=== PATIENT | female | born 1990 | race Caucasian/White ===

== ENCOUNTER → 2019-10-29 | Outpatient (CLI) | payer SELFPAY ==
--- NOTE | 2019-10-29 14:50 | RADIOLOGY REPORT (SQ) ---
EXAM DESCRIPTION: U/S [id number] TRNABD 1GES W/ODOP IMAGES COMPLETED DATE/TIME: 10/29/2019 2:21 pm REASON FOR STUDY: (Z34.81)ENCOUNTER FOR SUPRVSN OF NORMAL , FIRST TRIMESTER Z34.81 ENCOUNT ER FOR SUPRVSN OF NORMAL , FIRST TRIM COMPARISON: None. TECHNIQUE: Transabdominal static and realtime grayscale images acquired of the pelvis. Additional se lected spectral and color Doppler images recorded. All images stored on PACs. bHCG: Not available. CLINICAL DATES: Unknown LMP. LIMITATIONS: None. FINDINGS: FETUS: Single Living intrauterine . ULTRASOUND EGA: 8 weeks 5 days ULTRASOUND ANDREEA: 06/04/2020 EFW: Not applicable less than 20 weeks. CRL: 2.1 cm FHR: 165 beats per minute. SURVEY: No visualized anomalies. AMNIOTIC FLUID: Adequate amount. PLACENTA: Not yet developed due to early gestation. SUBCHORIONIC BLEED: A small subchorionic bleed measures 2.9 x 1.8 x 0.7 cm SIZE OF BLEED: See above. UTERUS: The uterus measures 11.8 x 7.5 x 6.1 cm No masses. No anomalies. CERVICAL LENGTH: 3.1 cm Closed. RIGHT ADNEXA: Not visualized due to overlying bowel gas. LEFT ADNEXA: The left ovary measures 2.1 x 2.0 x 2.1 cm. Normal ovary with normal vascular flow. No adnexal free fluid. No adnexal masses. FREE FLUID: None. OTHER: No other significant finding. IMPRESSION: LIVING INTRAUTERINE . EGA: 8 weeks 5 days SEE ABOVE. Trimester of : First trimester - 0 to 13 weeks. TECHNICAL DOCUMENTATION: JOB ID: [id number] [employer]- All Rights Reserved rev-06/23 Reading location - IP/workstation name: [facility]
== END ==
LOC: RAD 13:51
PROVIDERS: ATTEND Nurse Practitioner Family
DX: Z34.81 Encounter for supervision of other normal pregnancy, first trimester (principal)
CPT/HCPCS: 76801